=== PATIENT | male | born 1945 | race Caucasian/White ===

== ENCOUNTER 2017-07-20 12:56 | Inpatient (IN) | payer MEDICARE, OTHER ==
--- NOTE | 2017-07-20 13:21 | ED Physician Chart ---
ED Chief Complaint/HPI - Patient Information Date Seen:: 07/20/17 Time Seen:: 13:15 Chief Complaint:: aggressive behavior History of Present Illness:: At his extended care facility patient was reportedly spitting and striking staff. Allergies:: Allergies Allergy/AdvReac Type Severity Reaction Status Date / Time No Known Allergies Allergy Verified 07/20/17 13:13 Historian:: Patient, EMS Review:: Transfer documents Reviewed ED Review of Systems - Review of Systems General/Constitutional: No fever, No chills, No weight loss, No weakness, No diaphoresis, No edema, No loss of appetite Skin: No skin lesions, No rash, No bruising Head: No headache, No light-headedness Eyes: No loss of vision, No pain, No diplopia ENT: No earache, No nasal drainage, No sore throat, No tinnitus Neck: No neck pain, No swelling, No thyromegaly, No stiffness, No mass noted Cardio Vascular: No chest pain, No palpitations, No PND, No orthopnea, No edema Pulmonary: No SOB, No cough, No sputum, No wheezing GI: No nausea, No vomiting, No diarrhea, No pain, No melena, No hematochezia, No constipation, No hematemesis G/U: No dysuria, No frequency, No hematuria Musculoskeletal: No bone or joint pain, No back pain, No muscle pain Endocrine: No polyuria, No polydipsia Psychiatric: Prior psych history, Anxiety Hematopoietic: No bruising, No lymphadenopathy Allergic/Immuno: No urticaria, No angioedema Neurological: No syncope, No focal symptoms, No weakness, No paresthesia, No headache, No seizure, No dizziness, No confusion, No vertigo ED Past Medical History - Past Medical History Past Medical History: HTN, CAD, Dyslipidemia, Dementia, Other (status post subdural hematoma; status post urinary tract infection; Alzheimer's disease; hyperlipidemia depression; anxiety) Family History: Other (unavailable) Social History: Care Facility Surgical History: CABG Psychiatricy History: Depression, Dementia, Other (anxiety) Medication: Reviewed Family Medical History - Family Member Mother History Unknown: Yes ED Physical Exam - Physical Examination General/Constitutional: Well-developed, well-nourished, Alert, No distress Other Gen/Cons comments:: Is alert but confused; does not know the correct year; has a slow shuffling gait ; upper extremity tremors Head: Atraumatic Eyes: Lids, conjuctiva normal, PERRL Skin: Nl inspection, No rash, No skin lesions, No ecchymosis ENMT: External ears, nose nl, TM canals nl, Nasal exam nl Other ENMT comments:: 3/4 periodontal disease Neck: No nuchal rigidity Respiratory: Nl effort/Exclusion, Clear to Auscultation, No Wheeze/Rhonchi/Rales Cardio Vascular: RRR, No murmur, gallop, rubs, NL S1 S2 GI: No tenderness/rebounding/guarding, No organomegaly, No hernia, Normal BS's, Nondistended, No mass/bruits : No CVA tenderness Extremities: No tenderness or effusion, Normal digits & nails Neuro/Psych: No focal deficits Misc: No paraspinal tenderness ED Labs/Radiology/EKG Results - Lab Results Results: Laboratory Results - last 24 hr 07/20/17 07/20/17 13:25 13:25 WBC 7.1 RBC 4.32 Hgb 14.0 Hct 41.5 MCV 96.1 MCH 32.5 H MCHC Differential 33.8 RDW 14.0 Plt Count 231 MPV 7.4 Neutrophils % 52.5 Lymphocytes % 35.7 Monocytes % 9.4 Eosinophils % 1.6 Basophils % 0.8 Sodium 138 Potassium 3.7 Chloride 103 Carbon Dioxide 28.6 Anion Gap 10.1 BUN 24 Creatinine 1.2 Est GFR ( Amer) TNP Est GFR (Non-Af Amer) TNP BUN/Creatinine Ratio 20.0 Glucose 81 Calcium 9.8 Total Bilirubin 0.5 AST 17 ALT 10 Alkaline Phosphatase 37 Total Protein 7.4 Albumin 4.2 Globulin 3.2 Albumin/Globulin Ratio 1.3 Triglycerides 114 Cholesterol 139 LDL Cholesterol Direct 84 HDL Cholesterol 42 - EKG Interpretations Rate & Rhythm: normal sinus rhythm with rate of 63 Thornton: normal Comments:: Frequent unifocal PVCs ED Septic Shock - . Is Septic Shock (SBP<90, OR Lactate>4 mmol\L) present?: No ED Reassessment (Disposition) - Reassessment Reassessment Condition:: Unchanged - Diagnosis Diagnosis:: Dementia with aggressive behavior - Patient Disposition Admitted to:: [facility] Admitting Medical Physician:: David Cronin Admitting Psych Physician:: Wadie Alkhouri Condition at Disposition:: Stable, Unchanged
[2017-07-20 13:33] LABS: % BASOPHILS 0.8 % (0.0-2.0); % EOSINOPHILS 1.6 % (0.0-5.0); % LYMPHOCYTES 35.7 % (20.0-50.0); % MONOCYTES 9.4 % (2.0-10.0); % NEUTROPHILS 52.5 % (40.0-80.0); BASOPHILE ABSOLUTE 0.1 Th/cumm (0-0.2); EOSINOPHILE ABSOLUTE 0.1 Th/cmm (0.1-0.4); HEMATOCRIT 41.5 % (41.0-60); LYMPHOCYTE ABSOLUTE 2.5 Th/cmm (1.5-3.0); MEAN CELL VOLUME 96.1 fl (80-99); MEAN CORPUSCULAR HEMOGLOBIN 32.5 pg (27.0-31.0); MEAN CORPUSCULAR HGB CONC 33.8 pg (28.0-36.0); MEAN PLATELET VOLUME 7.4 fl; MONOCYTE ABSOLUTE 0.7 Th/cmm (0.3-1.0); NEUTROPHILE ABSOLUTE 3.7 Th/cmm (1.8-8.0); PLATELET COUNT 231 Th/cmm (150-400); RED BLOOD COUNT 4.32 Mil/cmm (3.80-5.80); WHITE BLOOD COUNT 7.1 Th/cmm (4.8-10.8)
[2017-07-20 13:49] LABS: ALB/GLOB RATIO 1.3 (1.0-1.8); ALBUMIN 4.2 gm/dL (4.2-5.5); ALKALINE PHOSPHATASE 37 U/L (34-104); ANION GAP 10.1 (7.0-16.0); BILIRUBIN,TOTAL 0.5 mg/dL (0.3-1.0); BUN - UREA NITROGEN 24 mg/dL (7-25); CALCIUM SERUM 9.8 mg/dL (8.6-10.3); CARBON DIOXIDE 28.6 mEq/L (21.0-31.0); CHLORIDE 103 mEq/L (98-107); CHOLESTEROL 139 mg/dL (<200); CREATININE - SERUM 1.2 mg/dL (0.7-1.3); GLUCOSE 81 mg/dL (70-105); HDL -HIGH DENSITY LIPOPROTEIN 42 mg/dL (23-92); POTASSIUM SERUM 3.7 mEq/L (3.5-5.1); SGOT 17 U/L (13-39); SGPT/ALT 10 U/L (7-52); SODIUM SERUM 138 mEq/L (136-145); TOTAL PROTEIN,SERUM 7.4 gm/dL (6.0-8.3); TRIGLYCERIDES 114 mg/dL (<150)
[2017-07-20 15:27] LABS: URINE BILIRUBIN NEGATIVE (NEGATIVE); URINE BLOOD NEGATIVE (NEGATIVE); URINE GLUCOSE (UA) NEGATIVE (NEGATIVE); URINE KETONE NEGATIVE (NEGATIVE); URINE LEUKOCYTE ESTERASE NEGATIVE (NEGATIVE); URINE MICROSCOPIC INDICATED? YES; URINE NITRATE NEGATIVE (NEGATIVE); URINE PROTEIN NEGATIVE (NEGATIVE); URINE SOURCE CLEAN C; URINE UROBILINOGEN 0.2 E.U./dL (0.2 - 1.0)
[2017-07-20 15:44] LABS: URINE CLARITY CLEAR (CLEAR); URINE COLOR YELLOW
[2017-07-20 15:45] LABS: URINE BACTERIA NONE SEEN /hpf (NONE SEEN); URINE EPITHELIAL CELLS NONE SEEN /lpf (FEW); URINE RBC NONE SEEN /hpf (0-5); URINE WBC NONE SEEN /hpf (0-5)
[2017-07-20 16:50] VITALS: BP 127/73
[2017-07-20] MEDS ORDERED: Magnesium Hydroxide (MOM) 30 mL UDC PO PRN ×2 (17:02→17:05)
[2017-07-20] MEDS ORDERED: Maalox 30 mL Cup PO PRN (17:02)
[2017-07-20 17:51] LABS: A1C % 5.9 % (4.0-6.0)
--- NOTE | 2017-07-20 21:07 | History & Physical ---
ADMIT DATE: 07/20/2017 ADMITTING PHYSICIAN: Dr. Sol. REASON FOR ADMISSION: Psychiatric disorder. HISTORY OF PRESENT ILLNESS: This is a 72-year-old male admitted to [facility] for underlying psychiatric illnesses by Dr. Sol. Dr. Sol requested medical H and P for this patient. The patient has underlying history of advanced dementia. Also, underlying history of hypertension, hyperlipidemia. The patient denies any complaints. PAST MEDICAL HISTORY: Hypertension, hyperlipidemia, dementia and mental disorders PAST SURGICAL HISTORY: No significant past surgeries. SOCIAL HISTORY: The patient is a resident of a custodial facility. No reported alcohol, tobacco or drug use. CURRENT MEDICATIONS: On Ambien, Zocor, Namenda, Ativan, Zestril, Mylanta, Tylenol and Dulcolax. REVIEW OF SYSTEMS: No reported fever, no diarrhea, no vomiting, no breathing issues. No chest pain, no palpitation, no headache, no other complaints. PHYSICAL EXAMINATION: VITAL SIGNS: Temperature 97.1, pulse 65, respiration 18, blood pressure 120/70, oxygen saturation is 94% on room air. Pain 0/10. HEENT: Unremarkable. HEART: S1, S2 normal. LUNGS: Clear to auscultation bilaterally. ABDOMEN: Soft, nontender. EXTREMITIES: No edema noted. LABORATORY DATA: Available laboratory data has been reviewed. ASSESSMENT: 1. Hypertension. 2. Hyperlipidemia. 3. Advanced dementia. 4. Mental disorder. PLAN: Continue Zestril. Continue simvastatin. Continue psychotropic medications. Psych evaluation per psychiatrist. The patient is medically stable. Thank you, Dr. Sol for allowing me to participate in the care of this patient. JOB# [id number]
[2017-07-21] MEDS: Multivitamin Tab PO SCH (09:24)
--- NOTE | 2017-07-22 03:39 | Psychosocial Evaluation ---
DATE OF SERVICE: 07/20/2017 PSYCHIATRIC PROGRESS NOTE IDENTIFYING DATA: The patient is a 72-year-old male, resident of [facility] in [place]. Information obtained by directly interviewing the patient as well as reviewing the admission papers and they are reliable. JUSTIFICATION FOR HOSPITALIZATION: The patient is admitted here on a voluntary basis on a 5150 for being a danger to others. CHIEF COMPLAINT: "I don't know." HISTORY OF PRESENT ILLNESS: This is the first psychiatric hospitalization to the [facility] for this 72-year-old who is reported to have been screaming and yelling and has been having difficult time to calm down. The patient could not be contained at a lower level of care and hence the patient has been transferred over to the [facility]. The patient has been monitored. The patient is being interviewed, but the patient is refusing to get the information. PAST PSYCHIATRIC HISTORY: Details are not known, but the patient is being followed up by Dr. Myers on an outpatient basis at [facility]. MEDICAL HISTORY: Significant for hypertension, hyperlipidemia. Physical examination is requested by Dr. Rincon. SUBSTANCE ABUSE HISTORY: None. PHYSICAL OR SEXUAL ABUSE HISTORY: None. LEGAL PROBLEMS: None at this time. STRENGTH AND ASSETS: The patient is motivated. MENTAL STATUS EXAMINATION: The patient is a 72-year-old, looking his stated age, superficially cooperative. Eye contact is fair. Mood is noted to be irritable. Affect is constricted. The patient has been having difficult time to cope with the stress. The patient's short and long-term memory are noted to be very much impaired at this time. The patient is withdrawing when I am interviewing the patient. The patient has been having difficult time to provide much of any information. The patient has been getting easily frustrated to answer the simple questions. The patient has paranoia, but denies any command hallucinations. The patient is screaming and yelling and getting aggressive. Coping skills at this time are noted to be very poor. The patient is reported to have been out of control and has been calm. DIAGNOSTIC IMPRESSION: AXIS I: Dementia and behavioral change secondary trait. 1B: Psychotic disorder, not otherwise specified. AXIS II: None. AXIS III: As per Dr. Rincon. IMMEDIATE TREATMENT PLAN: The patient is going to be observed on inpatient unit, provided with supportive psychotherapy. The patient is going to be closely monitored. Once stabilized, the patient is going to be discharged to self to be followed up on an outpatient basis. JOB# [id number]
[2017-07-22] MEDS: Multivitamin Tab PO SCH (09:43)
--- NOTE | 2017-07-22 16:09 | Progress Notes ---
DATE: 07/22/2017 SUBJECTIVE: Staff was spoken to. The patient is interviewed. Mood is noted to be less irritable. Affect is appropriate. The patient is sedated at this time. No side effects to the medications are noted. Coping skills at this time are noted to be poor. The patient has been currently on 100 mg on the trazodone that is also making him to be too groggy in the morning and hence it has been changed to 50 mg at bedtime and the patient is going to be closely monitored and followed up with the supportive therapy. The patient has been on Seroquel, trazodone and Ambien that is what is making him too sleepy and hence Ambien is going to be discontinued. PLAN: The patient is going to be continued on trazodone and Seroquel and followed up. JOB# [id number]
[2017-07-23] MEDS: Multivitamin Tab PO SCH (10:58)
--- NOTE | 2017-07-24 01:04 | Progress Notes ---
DATE: 07/23/2017 SUBJECTIVE: Staff was spoken to. The patient is interviewed. Mood is noted to be irritable. Affect is constricted. Coping skills are noted to be still poor. Insight and judgment are noted to be still impaired. No side effects to the medications are noted. The patient has been having difficult time to cope with the stress. ASSESSMENT: The patient is currently on Seroquel 12.5 mg, I am planning to increase the dose to 25 mg in view of his paranoia and aggressive behavior. PLAN: To continue the patient with supportive therapy. I encouraged the patient to verbalize the concerns rather than to act out. JOB# [id number]
[2017-07-24] MEDS: Multivitamin Tab PO SCH (09:42)
[2017-07-24] MEDS: Fenofibrate, Micronized 134 mg Cap PO SCH (20:27)
--- NOTE | 2017-07-25 09:16 | Consultation ---
DATE OF CONSULTATION: 07/22/2017 REFERRING PHYSICIAN: Maya Duong M.D. TYPE OF CONSULTATION: Psychology. HISTORY OF PRESENT ILLNESS: The patient is a 72-year-old male. The patient is a resident of [facility] in [facility]. The patient is being admitted on a 5150 hold for being a danger to others. The following is by review of the medical record and by the patient's self report. According to record review, the patient was reported by the staff at his facility to be screaming and yelling and unable to deescalate or calm down. The patient at the time of this interview is selectively mute and not giving much information. The patient continued to state that he did not know what this movie writer was asking. The patient also stated he does not know why he is in the hospital. The patient denied any suicidal ideation, plan or intention or any homicidal plan or intention. PAST MEDICAL HISTORY: Please see history and physical by Dr. Rincon. PAST PSYCHIATRIC HISTORY: The patient is seen by a psychiatrist and psychologist at his shelter facility. The patient has a history of dementia with behavioral disturbance. SUBSTANCE ABUSE HISTORY: None. PSYCHOSOCIAL HISTORY: The patient did not answer any questions presented about occupation or educational history or episcopalian affiliation. The patient did not answer questions about physical or sexual abuse history or about any legal issues at the time of this interview. MENTAL STATUS EXAMINATION: The patient appears to be his stated age. The patient's attitude is guarded and mostly uncooperative. Eye contact is fair. Mood is irritable and angry. Affect is constricted. The patient's thought process shows to be concrete. The patient is not answering questions; this needs further evaluation. The patient denied any auditory or visual hallucinations; however, there is some evidence of paranoid ideation. The patient's behavior is screaming and yelling on the unit as well as verbally aggressive. Impulse control is inadequate and impaired. Concentration is poor. The patient's sensorium is alert and oriented to self and place only. The patient did not participate in the memory assessment. The patient did not answer or participate in the interpretation of proverbs. Insight is impaired. Judgment is impaired. DIAGNOSTIC IMPRESSION: AXIS I: 1. Dementia with behavioral disturbance. 2. Psychotic disorder, not otherwise specified. AXIS II: Deferred. AXIS III: Per Dr. Rincon. TREATMENT PLAN: The patient has been seen by Dr. Duong for psychiatric evaluation and for the management of the patient's psychotropic medications. We will provide supportive psychotherapy to include de-escalation of the patient 's agitation as well as limit setting. We will provide motivational enhancement for the patient to become compliant and stay compliant with all aspects of his care and treatment plan. We will encourage the patient to verbalize his concerns versus acting out. We will provide coping strategies for phase of life issues. We will provide reality orientation, reality differentiation and reality integration as well. We will provide continued opportunities for the patient to verbally contract for safety and no self harm prior to discharge. Thank you, Dr. Duong, for this consult and the opportunity to participate with you in this patient's care. JOB# [id number] ALLYSON
[2017-07-25] MEDS: Multivitamin Tab PO SCH (09:55)
--- NOTE | 2017-07-25 15:35 | Progress Notes ---
DATE: 07/24/2017 Staff was spoken to. The patient is interviewed. Mood is noted to be less irritable. Affect is appropriate. The patient has finally been able to verbalize the concerns, he is willing to comply with the treatment. Also, the effects of the medications are noted. The patient is having a difficult time towards the evening and the patient is going to be closely monitored. I encouraged to verbalize the concerns rather than to act out. JOB# [id number]
--- NOTE | 2017-07-25 20:06 | General Progress Note ---
Subjective - Review of Systems Service Date: 07/25/17 Subjective: patient seen and examined doing fine seems confused denied any complaints Objective - Results Result Diagrams: 07/20/17 13:25 07/20/17 13:25 Recent Labs: Laboratory Last Values WBC 7.1 Th/cmm (4.8-10.8) 07/20/17 13:25 RBC 4.32 Mil/cmm (3.80-5.80) 07/20/17 13:25 Hgb 14.0 gm/dL (12-16) 07/20/17 13:25 Hct 41.5 % (41.0-60) 07/20/17 13:25 MCV 96.1 fl (80-99) 07/20/17 13:25 MCH 32.5 pg (27.0-31.0) H 07/20/17 13:25 MCHC Differential 33.8 pg (28.0-36.0) 07/20/17 13:25 RDW 14.0 % (11.5-20.0) 07/20/17 13:25 Plt Count 231 Th/cmm (150-400) 07/20/17 13:25 MPV 7.4 fl 07/20/17 13:25 Neutrophils % 52.5 % (40.0-80.0) 07/20/17 13:25 Lymphocytes % 35.7 % (20.0-50.0) 07/20/17 13:25 Monocytes % 9.4 % (2.0-10.0) 07/20/17 13:25 Eosinophils % 1.6 % (0.0-5.0) 07/20/17 13:25 Basophils % 0.8 % (0.0-2.0) 07/20/17 13:25 Sodium 138 mEq/L (136-145) 07/20/17 13:25 Potassium 3.7 mEq/L (3.5-5.1) 07/20/17 13:25 Chloride 103 mEq/L (98-107) 07/20/17 13:25 Carbon Dioxide 28.6 mEq/L (21.0-31.0) 07/20/17 13:25 Anion Gap 10.1 (7.0-16.0) 07/20/17 13:25 BUN 24 mg/dL (7-25) 07/20/17 13:25 Creatinine 1.2 mg/dL (0.7-1.3) 07/20/17 13:25 Est GFR ( Amer) TNP 07/20/17 13:25 Est GFR (Non-Af Amer) TNP 07/20/17 13:25 BUN/Creatinine Ratio 20.0 07/20/17 13:25 Glucose 81 mg/dL (70-105) 07/20/17 13:25 Hemoglobin A1c % 5.9 % (4.0-6.0) 07/20/17 13:25 Calcium 9.8 mg/dL (8.6-10.3) 07/20/17 13:25 Total Bilirubin 0.5 mg/dL (0.3-1.0) 07/20/17 13:25 AST 17 U/L (13-39) 07/20/17 13:25 ALT 10 U/L (7-52) 07/20/17 13:25 Alkaline Phosphatase 37 U/L (34-104) 07/20/17 13:25 Total Protein 7.4 gm/dL (6.0-8.3) 07/20/17 13:25 Albumin 4.2 gm/dL (4.2-5.5) 07/20/17 13:25 Globulin 3.2 gm/dL 07/20/17 13:25 Albumin/Globulin Ratio 1.3 (1.0-1.8) 07/20/17 13:25 Triglycerides 114 mg/dL (<150) 07/20/17 13:25 Cholesterol 139 mg/dL (<200) 07/20/17 13:25 LDL Cholesterol Direct 84 mg/dL (75-193) 07/20/17 13:25 HDL Cholesterol 42 mg/dL (23-92) 07/20/17 13:25 TSH 1.47 uIU/ml (0.34-5.60) 07/20/17 13:25 Urine Source CLEAN C 07/20/17 15:09 Urine Color YELLOW 07/20/17 15:09 Urine Clarity CLEAR (CLEAR) 07/20/17 15:09 Urine pH 6.0 (4.6 - 8.0) 07/20/17 15:09 Ur Specific Howell 1.025 (1.005-1.030) 07/20/17 15:09 Urine Protein NEGATIVE mg/dL (NEGATIVE) 07/20/17 15:09 Urine Glucose (UA) NEGATIVE mg/dL (NEGATIVE) 07/20/17 15:09 Urine Ketones NEGATIVE mg/dL (NEGATIVE) 07/20/17 15:09 Urine Blood NEGATIVE (NEGATIVE) 07/20/17 15:09 Urine Nitrate NEGATIVE (NEGATIVE) 07/20/17 15:09 Urine Bilirubin NEGATIVE (NEGATIVE) 07/20/17 15:09 Urine Urobilinogen 0.2 E.U./dL (0.2 - 1.0) 07/20/17 15:09 Ur Leukocyte Esterase NEGATIVE (NEGATIVE) 07/20/17 15:09 Urine RBC NONE SEEN /hpf (0-5) 07/20/17 15:09 Urine WBC NONE SEEN /hpf (0-5) 07/20/17 15:09 Ur Epithelial Cells NONE SEEN /lpf (FEW) 07/20/17 15:09 Urine Bacteria NONE SEEN /hpf (NONE SEEN) 07/20/17 15:09 RPR NONREACTIVE (NONREACTIVE) 07/20/17 13:25 - Physical Exam Vitals and I&O: Vital Signs Temp 97.6 F 07/25/17 14:00 Pulse 82 07/25/17 14:00 Resp 20 07/25/17 14:00 BP 113/45 07/25/17 14:00 Pulse Ox 97 07/25/17 14:00 Intake & Output 07/25/17 07/25/17 07/26/17 06:59 18:59 06:59 Intake Total 120 800 Balance 120 800 Intake: Oral 120 800 Other: # Voids 2 3 # Bowel Movements 1 0 Active Medications: Current Medications Acetaminophen (Tylenol) 650 mg PO Q4HR PRN PRN Reason: Mild Pain / Temp above 100 Stop: 09/18/17 17:01 Al Hydrox/Mg Hydrox/Simethicone (Maalox) 30 ml PO Q4HR PRN PRN Reason: GI DISTRESS Stop: 09/18/17 17:01 Bisacodyl (Dulcolax 10 Mg Supp) 10 mg RC DAILY PRN PRN Reason: Constipation Stop: 09/18/17 17:04 Donepezil HCl (Aricept) 10 mg PO HS JANIA Stop: 09/18/17 20:59 Last Admin: 07/24/17 20:29 Dose: Not Given Fenofibrate (Tricor) 134 mg PO HS [facility] Stop: 09/22/17 20:59 Last Admin: 07/24/17 20:27 Dose: 134 mg Lisinopril (Zestril) 20 mg PO DAILY [facility] Stop: 09/19/17 08:59 Last Admin: 07/25/17 09:56 Dose: 20 mg Lorazepam (Ativan) 0.5 mg PO Q4HR PRN; Protocol PRN Reason: Anxiety Stop: 08/19/17 17:01 Magnesium Hydroxide (Milk Of Magnesia) 30 ml PO HS PRN PRN Reason: Constipation Memantine (Namenda) 10 mg PO DAILY [facility] Stop: 09/19/17 08:59 Last Admin: 07/25/17 09:56 Dose: 10 mg Multivitamins/Vitamin C (Theragran) 1 tab PO DAILY [facility] Stop: 09/19/17 08:59 Last Admin: 07/25/17 09:55 Dose: 1 tab Mupirocin (Bactroban Oint) 1 appl NS BID [facility] Stop: 07/26/17 17:01 Last Admin: 07/25/17 16:34 Dose: 1 appl Quetiapine Fumarate (Seroquel) 25 mg PO HS JANIA PRN Reason: Protocol Stop: 09/21/17 09:33 Last Admin: 07/24/17 20:29 Dose: Not Given Simvastatin (Zocor) 80 mg PO [facility] Stop: 09/18/17 20:59 Last Admin: 07/24/17 20:27 Dose: 80 mg Trazodone HCl (Desyrel) 50 mg PO [facility] Stop: 09/20/17 10:50 Last Admin: 07/24/17 20:30 Dose: Not Given General: No acute distress Cardiovascular: Regular rate Lungs: Clear to auscultation Assessment/Plan - Assessment Assessment: HTN HYPERLIPIDEMIA Alzheimers dementia Mental health disorder - Plan Plan: Patient seems medically stable Continue current treatment Monitor vitals Nutritional Asmnt/Malnutr-PDOC - Dietary Evaluation Malnutrition Findings (Please click <Entered> for more info): Nutritional Asmnt/Malnutrition Start: 07/25/17 16: 44 Text: Status: Complete Freq: Document 07/25/17 16:44 ERIC (Rec: 07/25/17 16:47 [email or web address]) Nutritional Asmnt/Malnutrition Patient General Information Nutritional Screening Moderate Risk Diagnosis dementia with aggressive behavior Pertinent Medical Hx/Surgical Hx HTN, hyperlidemia, dementia, mental disorders Subjective Information Per EMR, PO intake 75-100%. Current Diet Order/ Nutrition Support IVAN Pertinent Medications theragran, seroquel Pertinent Labs 07/20 WNL Nutritional Hx/Data Height 1.7 m Height (Calculated Centimeters) 170.2 Current Weight (lbs) 68.039 kg Weight (Calculated Kilograms) 68.0 Weight (Calculated Grams) 84600.9 [place] Body Weight 148 Body Mass Index (BMI) 23.5 Weight Status Approriate GI Symptoms GI Symptoms None Last BM 07/25 Difficult in: None Skin Integrity/Comment: intact Current %PO Good (75-100%) Estimated Nutritional Goals BEE in Kcals: Using Current wt Calories/Kcals/Kg 25-30 Kcals Calculated 8325-9139 Protein: Using Current wt Protein g/k Protein Calculated 68 Fluid: ml 1700-2040ml (1ml/kcal) Nutritional Problem No current Nutrition Prob Problem N/A Intervention/Recommendation Comments 1. Continue with IVAN diet as ordered. 2. Monitor PO intake, wt, labs and skin integrity 3. F/U as low risk in 7 days, 08/01 Expected Outcomes/Goals Expected Outcomes/Goals 1. PO intake to meet at least 75% of nutritional needs. 2. Wt stability, skin to remain intact, labs to approach WNL.
[2017-07-25] MEDS: Fenofibrate, Micronized 134 mg Cap PO SCH ×2 (20:22→20:43)
--- NOTE | 2017-07-26 03:38 | Progress Notes ---
DATE: 07/25/2017 SUBJECTIVE: Staff was spoken to. The patient is interviewed. Mood is noted to be less irritable. The patient is much more awake and alert today. The patient's psychotropic medications have been kept on hold because the patient is too groggy. Coping skills at this time are noted to be improving. No major side effects are noted. The patient's aggressive behavior is a major concern and is being closely monitored. ASSESSMENT: The patient is less sedated. PLAN: To continue the patient with the current medications. I encouraged the patient to verbalize the concerns rather than to act out. JOB# [id number]
[2017-07-26] MEDS: Multivitamin Tab PO SCH (09:36)
[2017-07-26] MEDS: Fenofibrate, Micronized 134 mg Cap PO SCH (20:30)
--- NOTE | 2017-07-27 05:16 | Progress Notes ---
DATE: 07/26/2017 SUBJECTIVE: Staff was spoken to. The patient is interviewed. Mood is noted to be less irritable. The patient's lethargy has been under control after the medications has been held. The patient's coping skills are noted to be still poor. The patient tends to get easily irritable and confused towards the end of the day. No side effects to the medications are noted. The patient is being closely monitored with the p.r.n. dose of medications at this time. ASSESSMENT: The patient is still confused, agitated. PLAN: To continue the patient with the supportive therapy. Encouraged the patient to verbalize the concerns rather than to act out. JOB# [id number]
[2017-07-27] MEDS: Multivitamin Tab PO SCH (09:28)
[2017-07-27] MEDS: Fenofibrate, Micronized 134 mg Cap PO SCH (21:38)
--- NOTE | 2017-07-28 02:49 | Progress Notes ---
DATE: 07/27/2017 SUBJECTIVE: Staff was spoken to. The patient is interviewed. Mood is noted to be irritable. Affect is constricted. The patient is paranoid. The patient's insight and judgment at this time are noted to be impaired. The patient's coping skills are noted to be poor. The patient has been less irritable and patient's sleep is noted to be fair at this time. No side effects to the medications are noted and patient has been reported to have been drowsy during the daytime and hence it is decided to hold off on the trazodone and continue the Seroquel and then follow the patient up. JOB# [id number]
[2017-07-28] MEDS: Multivitamin Tab PO SCH (09:08)
[2017-07-28] MEDS: Fenofibrate, Micronized 134 mg Cap PO SCH (20:25)
--- NOTE | 2017-07-29 00:42 | Progress Notes ---
DATE: 07/28/2017 PSYCHIATRIC PROGRESS NOTE Staff was spoken to. The patient is interviewed. Mood is noted to be less irritable. Affect is appropriate. The patient has been paranoid, but denies any command hallucinations. Aggressive behavior has been coming under control, but the patient is still having problem with the short-term as well as long-term memories. ASSESSMENT: The patient is still impulsive. PLAN: To continue the patient with the current medications. I encouraged the patient to verbalize the concerns rather than to act out. JOB# [id number]
[2017-07-29] MEDS: Multivitamin Tab PO SCH (09:22)
--- NOTE | 2017-07-29 18:53 | Progress Notes ---
DATE: 07/29/2017 SUBJECTIVE: Staff was spoken to. The patient is interviewed. Mood is noted to be anxious. The patient is isolative and withdrawn. The patient is going on a tangent and not making much sense. Insight and judgment is still impaired. The patient is currently on 25 mg of the Seroquel. The patient is being closely monitored. The patient is still confused and demented. ASSESSMENT: The patient is still impulsive. PLAN: To continue the patient with the supportive therapy and followup. [facility]# [id number]
[2017-07-29] MEDS: Fenofibrate, Micronized 134 mg Cap PO SCH (21:22)
[2017-07-30] MEDS: Multivitamin Tab PO SCH (08:25)
[2017-07-30] MEDS: Fenofibrate, Micronized 134 mg Cap PO SCH (20:59)
--- NOTE | 2017-07-30 22:03 | Progress Notes ---
DATE: 07/30/2017 PSYCHIATRIC PROGRESS NOTE SUBJECTIVE: Staff was spoken to. The patient is interviewed. Mood is noted to be dysphoric. Coping skills are noted to be poor. Insight and judgment at this time are noted to be improving. Impulse control seems to be poor. No side effects to the medications are noted. The patient has been less irritable compared to yesterday, but the patient has a problem with his short-term as well as long-term memory deficits. The patient goes on a tangent. ASSESSMENT: The patient is still psychotic. PLAN: To continue the patient with the current medications and follow up with the supportive therapy. [facility]# [id number]
[2017-07-31] MEDS: Multivitamin Tab PO SCH (08:25)
[2017-07-31] MEDS: Fenofibrate, Micronized 134 mg Cap PO SCH (20:42)
--- NOTE | 2017-08-01 05:36 | Progress Notes ---
DATE: 07/31/2017 SUBJECTIVE: Staff was spoken to. The patient is interviewed. Mood is noted to be less irritable. Affect is appropriate. No major side effects to the medications are noted. The patient has been able to verbalize his concerns. The patient is on low dose of Seroquel and has been able to tolerate the medication. ASSESSMENT: The patient's psychosis is resolving. PLAN: To continue the patient with the supportive therapy and followup. JOB# [id number]
[2017-08-01] MEDS: Multivitamin Tab PO SCH (10:33)
--- NOTE | 2017-08-01 19:18 | Discharge Summary ---
DATE OF DISCHARGE: 08/01/2017 IDENTIFYING DATA: The patient is a 72-year-old male, resident of a [facility]. JUSTIFICATION FOR HOSPITALIZATION: The patient is admitted on a 5150, as a danger to others. CHIEF COMPLAINT: "I do not know." DIAGNOSES AT THE TIME OF ADMISSION: AXIS I: Dementia and behavioral change, secondary trait. AXIS IB: Psychotic disorder, not otherwise specified. AXIS II: None. AXIS III: As per Dr. Rincon. HISTORY OF PRESENT ILLNESS: Please refer the 07/22/2017, dictation done by me. Physical examination at the time of admission was done by Dr. Quique Rincon, and is noted to be significant for the patient having hypertension, hyperlipidemia, and advanced hospital course, and response to treatment. The patient has been observed on inpatient unit, provided with supportive psychotherapy. The patient has been closely monitored. I encouraged him to verbalize the concerns rather than to act out and the patient has been placed on quetiapine, which was given 25 mg at bedtime and the patient has been closely monitored and no major behavioral problems are noted. The patient was finally discharged on 08/01/2017, with recommendation that he is going to be seeking treatment on an outpatient basis. MENTAL STATUS EXAMINATION: At the time of the discharge, the patient noted to be anxious. Affect is appropriate. Not suicidal or homicidal. Insight and judgment are noted to be improving. Impulse control is noted to be fair. Coping skills are also noted fair. The patient is not presenting with any threats to harm self or others at the time of the discharge. Condition at the time of discharge noted to be stable. DIAGNOSES AT THE TIME OF DISCHARGE: AXIS I: Dementia and behavioral change, secondary trait. AXIS IB: Psychotic disorder, not otherwise specified. AXIS II: None. AXIS III: As per Dr. Rincon. AFTERCARE PLAN: The patient is discharged to [facility] to be followed up on an outpatient basis. PROGNOSIS: At the time of discharge is noted to be fair with the treatment. [facility]# [id number]
[2017-08-01] MEDS: Fenofibrate, Micronized 134 mg Cap PO SCH (20:26)
--- NOTE | 2017-08-01 21:17 | General Progress Note ---
Subjective - Review of Systems Service Date: 08/01/17 Subjective: patient seen and examined doing fine seems confused Objective - Results Result Diagrams: 07/20/17 13:25 07/20/17 13:25 Recent Labs: Laboratory Last Values WBC 7.1 Th/cmm (4.8-10.8) 07/20/17 13:25 RBC 4.32 Mil/cmm (3.80-5.80) 07/20/17 13:25 Hgb 14.0 gm/dL (12-16) 07/20/17 13:25 Hct 41.5 % (41.0-60) 07/20/17 13:25 MCV 96.1 fl (80-99) 07/20/17 13:25 MCH 32.5 pg (27.0-31.0) H 07/20/17 13:25 MCHC Differential 33.8 pg (28.0-36.0) 07/20/17 13:25 RDW 14.0 % (11.5-20.0) 07/20/17 13:25 Plt Count 231 Th/cmm (150-400) 07/20/17 13:25 MPV 7.4 fl 07/20/17 13:25 Neutrophils % 52.5 % (40.0-80.0) 07/20/17 13:25 Lymphocytes % 35.7 % (20.0-50.0) 07/20/17 13:25 Monocytes % 9.4 % (2.0-10.0) 07/20/17 13:25 Eosinophils % 1.6 % (0.0-5.0) 07/20/17 13:25 Basophils % 0.8 % (0.0-2.0) 07/20/17 13:25 Sodium 138 mEq/L (136-145) 07/20/17 13:25 Potassium 3.7 mEq/L (3.5-5.1) 07/20/17 13:25 Chloride 103 mEq/L (98-107) 07/20/17 13:25 Carbon Dioxide 28.6 mEq/L (21.0-31.0) 07/20/17 13:25 Anion Gap 10.1 (7.0-16.0) 07/20/17 13:25 BUN 24 mg/dL (7-25) 07/20/17 13:25 Creatinine 1.2 mg/dL (0.7-1.3) 07/20/17 13:25 Est GFR ( Amer) TNP 07/20/17 13:25 Est GFR (Non-Af Amer) TNP 07/20/17 13:25 BUN/Creatinine Ratio 20.0 07/20/17 13:25 Glucose 81 mg/dL (70-105) 07/20/17 13:25 Hemoglobin A1c % 5.9 % (4.0-6.0) 07/20/17 13:25 Calcium 9.8 mg/dL (8.6-10.3) 07/20/17 13:25 Total Bilirubin 0.5 mg/dL (0.3-1.0) 07/20/17 13:25 AST 17 U/L (13-39) 07/20/17 13:25 ALT 10 U/L (7-52) 07/20/17 13:25 Alkaline Phosphatase 37 U/L (34-104) 07/20/17 13:25 Total Protein 7.4 gm/dL (6.0-8.3) 07/20/17 13:25 Albumin 4.2 gm/dL (4.2-5.5) 07/20/17 13:25 Globulin 3.2 gm/dL 07/20/17 13:25 Albumin/Globulin Ratio 1.3 (1.0-1.8) 07/20/17 13:25 Triglycerides 114 mg/dL (<150) 07/20/17 13:25 Cholesterol 139 mg/dL (<200) 07/20/17 13:25 LDL Cholesterol Direct 84 mg/dL (75-193) 07/20/17 13:25 HDL Cholesterol 42 mg/dL (23-92) 07/20/17 13:25 TSH 1.47 uIU/ml (0.34-5.60) 07/20/17 13:25 Urine Source CLEAN C 07/20/17 15:09 Urine Color YELLOW 07/20/17 15:09 Urine Clarity CLEAR (CLEAR) 07/20/17 15:09 Urine pH 6.0 (4.6 - 8.0) 07/20/17 15:09 Ur Specific [place] 1.025 (1.005-1.030) 07/20/17 15:09 Urine Protein NEGATIVE mg/dL (NEGATIVE) 07/20/17 15:09 Urine Glucose (UA) NEGATIVE mg/dL (NEGATIVE) 07/20/17 15:09 Urine Ketones NEGATIVE mg/dL (NEGATIVE) 07/20/17 15:09 Urine Blood NEGATIVE (NEGATIVE) 07/20/17 15:09 Urine Nitrate NEGATIVE (NEGATIVE) 07/20/17 15:09 Urine Bilirubin NEGATIVE (NEGATIVE) 07/20/17 15:09 Urine Urobilinogen 0.2 E.U./dL (0.2 - 1.0) 07/20/17 15:09 Ur Leukocyte Esterase NEGATIVE (NEGATIVE) 07/20/17 15:09 Urine RBC NONE SEEN /hpf (0-5) 07/20/17 15:09 Urine WBC NONE SEEN /hpf (0-5) 07/20/17 15:09 Ur Epithelial Cells NONE SEEN /lpf (FEW) 07/20/17 15:09 Urine Bacteria NONE SEEN /hpf (NONE SEEN) 07/20/17 15:09 RPR NONREACTIVE (NONREACTIVE) 07/20/17 13:25 - Physical Exam Vitals and I&O: Vital Signs Temp 97.6 F 08/01/17 15:29 Pulse 70 08/01/17 15:29 Resp 20 08/01/17 15:29 BP 131/70 08/01/17 15:29 Pulse Ox 97 08/01/17 15:29 Intake & Output 08/01/17 08/01/17 08/02/17 06:59 18:59 06:59 Intake Total 480 1200 Balance 480 1200 Intake: Oral 480 1200 Other: # Voids 2 3 # Bowel Movements 1 Active Medications: Current Medications Acetaminophen (Tylenol) 650 mg PO Q4HR PRN PRN Reason: Mild Pain / Temp above 100 Stop: 09/18/17 17:01 Al Hydrox/Mg Hydrox/Simethicone (Maalox) 30 ml PO Q4HR PRN PRN Reason: GI DISTRESS Stop: 09/18/17 17:01 Bisacodyl (Dulcolax 10 Mg Supp) 10 mg RC DAILY PRN PRN Reason: Constipation Stop: 09/18/17 17:04 Donepezil HCl (Aricept) 10 mg PO HS JANIA Stop: 09/18/17 20:59 Last Admin: 08/01/17 20:27 Dose: 10 mg Fenofibrate (Tricor) 134 mg PO HS JANIA Stop: 09/22/17 20:59 Last Admin: 08/01/17 20:26 Dose: 134 mg Lisinopril (Zestril) 20 mg PO DAILY [facility] Stop: 09/19/17 08:59 Last Admin: 08/01/17 10:33 Dose: Not Given Lorazepam (Ativan) 0.5 mg PO Q4HR PRN; Protocol PRN Reason: Anxiety Stop: 08/19/17 17:01 Last Admin: 07/30/17 21:00 Dose: 0.5 mg Magnesium Hydroxide (Milk Of Magnesia) 30 ml PO HS PRN PRN Reason: Constipation Memantine (Namenda) 10 mg PO DAILY [facility] Stop: 09/19/17 08:59 Last Admin: 08/01/17 10:33 Dose: Not Given Multivitamins/Vitamin C (Theragran) 1 tab PO DAILY [facility] Stop: 09/19/17 08:59 Last Admin: 08/01/17 10:33 Dose: Not Given Quetiapine Fumarate (Seroquel) 25 mg PO HS JANIA PRN Reason: Protocol Stop: 09/21/17 09:33 Last Admin: 08/01/17 20:27 Dose: 25 mg Simvastatin (Zocor) 80 mg PO HS [facility] Stop: 09/18/17 20:59 Last Admin: 08/01/17 20:27 Dose: 80 mg General: No acute distress Cardiovascular: Regular rate Lungs: Clear to auscultation Assessment/Plan - Assessment Assessment: HTN HYPERLIPIDEMIA Alzheimers dementia Mental health disorder - Plan Plan: Patient seems medically stable Continue current treatment Monitor vitals Nutritional Asmnt/Malnutr-PDOC - Dietary Evaluation Malnutrition Findings (Please click <Entered> for more info): Nutritional Asmnt/Malnutrition Start: 07/25/17 16: 44 Text: Status: Complete Freq: Document 07/25/17 16:44 ERIC (Rec: 07/25/17 16:47 LCH[facility]Jacinta [facility]) Nutritional Asmnt/Malnutrition Patient General Information Nutritional Screening Moderate Risk Diagnosis dementia with aggressive behavior Pertinent Medical Hx/Surgical Hx HTN, hyperlidemia, dementia, mental disorders Subjective Information Per EMR, PO intake 75-100%. Current Diet Order/ Nutrition Support IVAN Pertinent Medications theragran, seroquel Pertinent Labs 07/20 WNL Nutritional Hx/Data Height 1.7 m Height (Calculated Centimeters) 170.2 Current Weight (lbs) 68.039 kg Weight (Calculated Kilograms) 68.0 Weight (Calculated Grams) 03606.9 [place] Body Weight 148 Body Mass Index (BMI) 23.5 Weight Status Approriate GI Symptoms GI Symptoms None Last BM 07/25 Difficult in: None Skin Integrity/Comment: intact Current %PO Good (75-100%) Estimated Nutritional Goals BEE in Kcals: Using Current wt Calories/Kcals/Kg 25-30 Kcals Calculated 2063-7117 Protein: Using Current wt Protein g/k Protein Calculated 68 Fluid: ml 1700-2040ml (1ml/kcal) Nutritional Problem No current Nutrition Prob Problem N/A Intervention/Recommendation Comments 1. Continue with IVAN diet as ordered. 2. Monitor PO intake, wt, labs and skin integrity 3. F/U as low risk in 7 days, 08/01 Expected Outcomes/Goals Expected Outcomes/Goals 1. PO intake to meet at least 75% of nutritional needs. 2. Wt stability, skin to remain intact, labs to approach WNL.
[2017-08-02] MEDS: Multivitamin Tab PO SCH (10:23)
--- NOTE | 2017-08-02 18:27 | General Progress Note ---
Subjective - Review of Systems Service Date: 08/02/17 Subjective: Late entry: patient was seen and examined earlier today DC plan to SNIF today Objective - Results Result Diagrams: 07/20/17 13:25 07/20/17 13:25 Recent Labs: Laboratory Last Values WBC 7.1 Th/cmm (4.8-10.8) 07/20/17 13:25 RBC 4.32 Mil/cmm (3.80-5.80) 07/20/17 13:25 Hgb 14.0 gm/dL (12-16) 07/20/17 13:25 Hct 41.5 % (41.0-60) 07/20/17 13:25 MCV 96.1 fl (80-99) 07/20/17 13:25 MCH 32.5 pg (27.0-31.0) H 07/20/17 13:25 MCHC Differential 33.8 pg (28.0-36.0) 07/20/17 13:25 RDW 14.0 % (11.5-20.0) 07/20/17 13:25 Plt Count 231 Th/cmm (150-400) 07/20/17 13:25 MPV 7.4 fl 07/20/17 13:25 Neutrophils % 52.5 % (40.0-80.0) 07/20/17 13:25 Lymphocytes % 35.7 % (20.0-50.0) 07/20/17 13:25 Monocytes % 9.4 % (2.0-10.0) 07/20/17 13:25 Eosinophils % 1.6 % (0.0-5.0) 07/20/17 13:25 Basophils % 0.8 % (0.0-2.0) 07/20/17 13:25 Sodium 138 mEq/L (136-145) 07/20/17 13:25 Potassium 3.7 mEq/L (3.5-5.1) 07/20/17 13:25 Chloride 103 mEq/L (98-107) 07/20/17 13:25 Carbon Dioxide 28.6 mEq/L (21.0-31.0) 07/20/17 13:25 Anion Gap 10.1 (7.0-16.0) 07/20/17 13:25 BUN 24 mg/dL (7-25) 07/20/17 13:25 Creatinine 1.2 mg/dL (0.7-1.3) 07/20/17 13:25 Est GFR ( Amer) TNP 07/20/17 13:25 Est GFR (Non-Af Amer) TNP 07/20/17 13:25 BUN/Creatinine Ratio 20.0 07/20/17 13:25 Glucose 81 mg/dL (70-105) 07/20/17 13:25 Hemoglobin A1c % 5.9 % (4.0-6.0) 07/20/17 13:25 Calcium 9.8 mg/dL (8.6-10.3) 07/20/17 13:25 Total Bilirubin 0.5 mg/dL (0.3-1.0) 07/20/17 13:25 AST 17 U/L (13-39) 07/20/17 13:25 ALT 10 U/L (7-52) 07/20/17 13:25 Alkaline Phosphatase 37 U/L (34-104) 07/20/17 13:25 Total Protein 7.4 gm/dL (6.0-8.3) 07/20/17 13:25 Albumin 4.2 gm/dL (4.2-5.5) 07/20/17 13:25 Globulin 3.2 gm/dL 07/20/17 13:25 Albumin/Globulin Ratio 1.3 (1.0-1.8) 07/20/17 13:25 Triglycerides 114 mg/dL (<150) 07/20/17 13:25 Cholesterol 139 mg/dL (<200) 07/20/17 13:25 LDL Cholesterol Direct 84 mg/dL (75-193) 07/20/17 13:25 HDL Cholesterol 42 mg/dL (23-92) 07/20/17 13:25 TSH 1.47 uIU/ml (0.34-5.60) 07/20/17 13:25 Urine Source CLEAN C 07/20/17 15:09 Urine Color YELLOW 07/20/17 15:09 Urine Clarity CLEAR (CLEAR) 07/20/17 15:09 Urine pH 6.0 (4.6 - 8.0) 07/20/17 15:09 Ur Specific [place] 1.025 (1.005-1.030) 07/20/17 15:09 Urine Protein NEGATIVE mg/dL (NEGATIVE) 07/20/17 15:09 Urine Glucose (UA) NEGATIVE mg/dL (NEGATIVE) 07/20/17 15:09 Urine Ketones NEGATIVE mg/dL (NEGATIVE) 07/20/17 15:09 Urine Blood NEGATIVE (NEGATIVE) 07/20/17 15:09 Urine Nitrate NEGATIVE (NEGATIVE) 07/20/17 15:09 Urine Bilirubin NEGATIVE (NEGATIVE) 07/20/17 15:09 Urine Urobilinogen 0.2 E.U./dL (0.2 - 1.0) 07/20/17 15:09 Ur Leukocyte Esterase NEGATIVE (NEGATIVE) 07/20/17 15:09 Urine RBC NONE SEEN /hpf (0-5) 07/20/17 15:09 Urine WBC NONE SEEN /hpf (0-5) 07/20/17 15:09 Ur Epithelial Cells NONE SEEN /lpf (FEW) 07/20/17 15:09 Urine Bacteria NONE SEEN /hpf (NONE SEEN) 07/20/17 15:09 RPR NONREACTIVE (NONREACTIVE) 07/20/17 13:25 - Physical Exam Vitals and I&O: Vital Signs Temp 96.9 F 08/02/17 15:03 Pulse 60 08/02/17 15:03 Resp 20 08/02/17 15:03 BP 132/71 08/02/17 15:03 Pulse Ox 95 08/02/17 15:03 Intake & Output 08/01/17 08/02/17 08/02/17 18:59 06:59 18:59 Intake Total 1200 120 Balance 1200 120 Intake: Oral 1200 120 Other: # Voids 3 3 # Bowel Movements 1 Stool Characteristics Formed Brown General: No acute distress Cardiovascular: Regular rate Lungs: Clear to auscultation Assessment/Plan - Assessment Assessment: HTN HYPERLIPIDEMIA Alzheimers dementia Mental health disorder - Plan Plan: Patient seems medically stable DC plan for SNIF today Continue current treatment Monitor vitals Nutritional Asmnt/Malnutr-PDOC - Dietary Evaluation Malnutrition Findings (Please click <Entered> for more info): Nutritional Asmnt/Malnutrition Start: 07/25/17 16: 44 Text: Status: Complete Freq: Document 07/25/17 16:44 LCHENG (Rec: 07/25/17 16:47 LCHENG LETICIA-[email or web address]) Nutritional Asmnt/Malnutrition Patient General Information Nutritional Screening Moderate Risk Diagnosis dementia with aggressive behavior Pertinent Medical Hx/Surgical Hx HTN, hyperlidemia, dementia, mental disorders Subjective Information Per EMR, PO intake 75-100%. Current Diet Order/ Nutrition Support IVAN Pertinent Medications theragran, seroquel Pertinent Labs 07/20 WNL Nutritional Hx/Data Height 1.7 m Height (Calculated Centimeters) 170.2 Current Weight (lbs) 68.039 kg Weight (Calculated Kilograms) 68.0 Weight (Calculated Grams) 03244.9 [place] Body Weight 148 Body Mass Index (BMI) 23.5 Weight Status Approriate GI Symptoms GI Symptoms None Last BM 07/25 Difficult in: None Skin Integrity/Comment: intact Current %PO Good (75-100%) Estimated Nutritional Goals BEE in Kcals: Using Current wt Calories/Kcals/Kg 25-30 Kcals Calculated 5442-6919 Protein: Using Current wt Protein g/k Protein Calculated 68 Fluid: ml 1700-2040ml (1ml/kcal) Nutritional Problem No current Nutrition Prob Problem N/A Intervention/Recommendation Comments 1. Continue with IVAN diet as ordered. 2. Monitor PO intake, wt, labs and skin integrity 3. F/U as low risk in 7 days, 08/01 Expected Outcomes/Goals Expected Outcomes/Goals 1. PO intake to meet at least 75% of nutritional needs. 2. Wt stability, skin to remain intact, labs to approach WNL.
== END 2017-08-02 16:45 | DRG 57 ==
LOC: ER 12:56 → GERO2 15:15 → GERO 07-21 19:43
DX: G30.9 Alzheimer's disease, unspecified (principal); F02.81 Dementia in other diseases classified elsewhere, unspecified severity, with behavioral disturbance; F29 Unspecified psychosis not due to a substance or known physiological condition; I10 Essential (primary) hypertension; I25.10 Atherosclerotic heart disease of native coronary artery without angina pectoris; E78.5 Hyperlipidemia, unspecified; F32.9 Major depressive disorder, single episode, unspecified; F41.9 Anxiety disorder, unspecified; Z95.1 Presence of aortocoronary bypass graft
CPT/HCPCS: 36415-UA; 80053-TC; 80061-TC; 81001-TC; 83036-90; 84443-TC; 85025-TC; 86592-TC; 93005; Z7610

== ENCOUNTER 2018-09-24 14:05 | Inpatient (IN) | payer MEDICARE, MEDICAID ==
--- NOTE | 2018-09-24 15:03 | ED Physician Chart ---
ED Chief Complaint/HPI - Patient Information Date Seen:: 09/24/18 Time Seen:: 14:30 Chief Complaint:: Increased agitation History of Present Illness:: Brought in by ambulance from nursing facility for medical clearance for Geropsych admission. Pt has been noticed to have left hand swelling. Pt has h/o dementia and psychosis. Pt is uncooperative, and thus H & P are limited. Info is primarily from review of limited transfer documents. Allergies:: Allergies Allergy/AdvReac Type Severity Reaction Status Date / Time No Known Allergies Allergy Verified 07/20/17 13:19 Vitals:: Vital Signs - 8 hr 09/24/18 14:18 Temp 97.7 F HR 60 RR 16 BP 96/38 Historian:: Medical Records (from transferring facility.) Family MD/PCP:: Dr. Rincon/Dr. Walker LMP:: N/A Review:: Nurse's Note Reviewed, Transfer documents Reviewed ED Review of Systems - Review of Systems General/Constitutional: Other (Pt does not cooperate for ROS.) ED Past Medical History - Past Medical History Past Medical History: HTN, PUD/GERD, Dementia, Other (chronic renal insufficiency.) Family History: Other (Pt does not cooperate to provide info on FHx.) Social History: Care Facility, Other (Pt does not cooperate to provide info on SHx.) Surgical History: other (Pt does not cooperate to provide info on Surgical Hx.) Psychiatricy History: Dementia Medication: Reviewed Family Medical History - Family Member Mother History Unknown: Yes ED Physical Exam - Physical Examination General/Constitutional: Awake, Well-developed, well-nourished (male), Alert, No distress, Non-toxic appearing Other Gen/Cons comments:: Breathes comfortably. Pt is essentially nonverbal and is not cooperative. Head: Atraumatic Eyes: Lids, conjuctiva normal, PERRL, EOMI Skin: Nl inspection, Well hydrated, No lymphadenopathy ENMT: External ears, nose nl, Nasal exam nl, Oropharynx nl Neck: Nontender, Full ROM w/o pain, No JVD, No nuchal rigidity, No mass Respiratory: Nl effort/Exclusion, Clear to Auscultation, No Wheeze/Rhonchi/Rales Cardio Vascular: RRR, No murmur, gallop, rubs GI: No tenderness/rebounding/guarding, No organomegaly, Normal BS's, Nondistended, No mass/bruits Other GI comments:: Abdomen is soft. Other Extremities comments:: Unremarkable except L hand shows minimal swelling at lateral dorsum. No open wound, erythema, ecchymosis, or gross deformity. ROM is not well assessed due to lack of pt's cooperation. No detectable motor/sensory/vascular deficit. Good distal capillary refill. Other Neuro/Psych comments:: Alert and responsive to voice and tactile stimuli. Spontaneous movements noticed in all 4 extremities. Pt does not cooperate for full neurological exam. ED Labs/Radiology/EKG Results - Lab Results Results: Laboratory Results - last 24 hr 09/24/18 09/24/18 09/24/18 15:15 15:15 15:15 WBC 6.0 RBC 3.90 Hgb 12.7 Hct 37.2 L MCV 95.4 MCH 32.5 H MCHC Differential 34.1 RDW 13.2 Plt Count 240 MPV 6.7 Neutrophils % 52.9 Lymphocytes % 30.8 Monocytes % 10.7 H Eosinophils % 5.2 H Basophils % 0.4 PT 11.0 INR 1.06 PTT (Actin FS) 35.5 Sodium 139 Potassium 4.2 Chloride 105 Carbon Dioxide 27.5 Anion Gap 10.7 BUN 38 H Creatinine 1.9 H Est GFR ( Amer) TNP Est GFR (Non-Af Amer) TNP BUN/Creatinine Ratio 20.0 Glucose 74 Calcium 9.4 Total Bilirubin 0.4 AST 24 ALT 14 Alkaline Phosphatase 22 L Total Protein 6.9 Albumin 4.0 L Globulin 2.9 Albumin/Globulin Ratio 1.4 Pending lab: urinalysis. - Radiology Results Results: Left hand X-ray: Based on my interpretation, mild soft tissue swelling. No acute fx or subluxation. Official report is pending. ED Septic Shock - . Is Septic Shock (SBP<90, OR Lactate>4 mmol\L) present?: No - <6hrs of presentation: Vital Signs: Vital Signs - 8 hr 09/24/18 14:18 Temp 97.7 F HR 60 RR 16 BP 96/38 ED Reassessment (Disposition) - Reassessment Reassessment:: 1620 Pt remains stable. No new findings. Available lab and radiological findings have been reviewed. Pt is medically cleared for Geropsych admission. Pt 's attending physician Dr. Rincon is to follow on pending lab results. - Diagnosis Diagnosis:: Dementia with increased agitation. Chronic renal insufficiency. L hand contusion. Stable and improved. - Patient Disposition Admitted to:: [facility] Admitting Medical Physician:: Quique Rincon Admitting Psych Physician:: Gabriela Walker Time:: 16:25 Condition at Disposition:: Stable
[2018-09-24 15:38] LABS: INR 1.06 (0.5-1.4)
[2018-09-24 15:41] LABS: ALB/GLOB RATIO 1.4 (1.0-1.8); ALKALINE PHOSPHATASE 22 U/L (34-104); ANION GAP 10.7 (7.0-16.0); BILIRUBIN,TOTAL 0.4 mg/dL (0.3-1.0); BUN - UREA NITROGEN 38 mg/dL (7-25); CALCIUM SERUM 9.4 mg/dL (8.6-10.3); CARBON DIOXIDE 27.5 mEq/L (21.0-31.0); CHLORIDE 105 mEq/L (98-107); CREATININE - SERUM 1.9 mg/dL (0.7-1.3); GLUCOSE 74 mg/dL (70-105); POTASSIUM SERUM 4.2 mEq/L (3.5-5.1); SGOT 24 U/L (13-39); SGPT/ALT 14 U/L (7-52); SODIUM SERUM 139 mEq/L (136-145); TOTAL PROTEIN,SERUM 6.9 gm/dL (6.0-8.3)
[2018-09-24 16:06] LABS: % EOSINOPHILS 5.2 % (0.0-5.0); % LYMPHOCYTES 30.8 % (20.0-50.0); % MONOCYTES 10.7 % (2.0-10.0); % NEUTROPHILS 52.9 % (40.0-80.0); HEMATOCRIT 37.2 % (41.0-60); HEMOGLOBIN 12.7 gm/dL (12-16); MEAN CELL VOLUME 95.4 fl (80-99); MEAN CORPUSCULAR HEMOGLOBIN 32.5 pg (27.0-31.0); MEAN CORPUSCULAR HGB CONC 34.1 pg (28.0-36.0); PLATELET COUNT 240 Th/cmm (150-400); RED CELL DISTRIBUTION WIDTH 13.2 % (11.5-20.0)
[2018-09-24 16:07] LABS: % BASOPHILS 0.4 % (0.0-2.0)
[2018-09-24 16:59] VITALS: BP 106/60
[2018-09-24] MEDS ORDERED: Magnesium Hydroxide (MOM) 30 mL UDC PO PRN (17:16)
[2018-09-24 19:27] LABS: CHOLESTEROL 112 mg/dL (<200); HDL -HIGH DENSITY LIPOPROTEIN 39 mg/dL (23-92); TRIGLYCERIDES 103 mg/dL (<150)
[2018-09-24] MEDS: Fenofibrate, Micronized 134 mg Cap PO SCH (20:49)
[2018-09-25 08:05] LABS: A1C 5.4 % (4.8-5.6)
[2018-09-25] MEDS: Multivitamin Tab PO SCH (09:28)
--- NOTE | 2018-09-25 10:08 | Diagnostic Imaging Report ---
Left hand (4 views) HISTORY: Pain, swelling No acute abnormalities. No fractures. Calcific densities noted adjacent to the first interphalangeal joint which appear chronic. Findings may be associated with old trauma. No other acute abnormalities. No acute fractures. Mild degenerative changes noted about the radial carpal joint space. Mild degenerative changes noted about the first carpal metacarpal joint region. IMPRESSION: 1. No acute bony abnormalities 2. Degenerative and chronic changes
--- NOTE | 2018-09-25 15:48 | Psychiatric Evaluation ---
DATE OF SERVICE: 09/24/2018 IDENTIFYING INFORMATION: The patient is a 73-year-old male. CHIEF COMPLAINT: No answer. HISTORY OF PRESENT ILLNESS: The patient came to nursing facility because of dementia and psychosis. He was uncooperative, unable to make safe plan for self-care. The patient was a poor historian. He was feeding himself, but he would not answer any of my questions. He would not even acknowledge my presence. The patient apparently with a history of dementia. PAST PSYCHIATRIC HISTORY: Dementia. PAST MEDICAL HISTORY: The patient has ____, which is stable and improved. ALLERGIES: The patient has no known drug allergy. FAMILY AND SOCIAL HISTORY: Unobtainable. MENTAL STATUS EXAMINATION: The patient is appropriately dressed and not well groomed. He was in hospital gown. He is alert. He would not tell me his age, where he is, why he is here or participate in any meaningful conversation. Flat affect. He has been agitated in the nursing facility. He is unable to tell me if he wants to harm himself or anyone. He would not tell me if he is responding to internal stimuli. His long and short term memory is poor; unable to tell me his age, where he is, why he is here, how long he has been or date of . His insight about his illness is poor, does not realize ____. Judgment is poor with his agitation, dementia. IMPRESSION: Psychosis, not otherwise specified, dementia. MEDICAL DIAGNOSIS: Hypertension. PLAN: The patient will be continued with his medication, which is Aricept, Namenda. He will continue with the rest of his medication ____, Bisacodyl, fenofibrate, lisinopril. We will adjust medication as needed. ESTIMATED LENGTH OF STAY: 3-7 days. DISCHARGE CRITERIA: Decreasing agitation, psychosis, after discharge, outpatient treatment. [facility]# [id number]
[2018-09-25] MEDS: Fenofibrate, Micronized 134 mg Cap PO SCH (21:38)
[2018-09-26] MEDS: Multivitamin Tab PO SCH (09:40)
[2018-09-26] MEDS: Fenofibrate, Micronized 134 mg Cap PO SCH (21:16)
--- NOTE | 2018-09-27 07:07 | Progress Notes ---
DATE: 09/27/2018 SUBJECTIVE: Chart was reviewed and the patient interviewed. Also discussed the patient's condition with the staff and reviewed records and labs. The patient is still confused and is still actively hallucinating. The patient is talking to himself and rambling with incoherent thought processes and unable to carry on any coherent conversation. The patient also is still wandering around and restless. Also did not sleep most of last night. Also, during interview, the patient is unable to answer any of my questions currently and he is preoccupied and actively responding. ASSESSMENT: The patient is still psychotic and is still agitated. TREATMENT PLAN: We will continue to monitor his behavior closely. Also, increase Risperdal to 0.5 mg at bedtime and we will add trazodone 25 mg at bedtime and will continue to follow up closely. JOB# [id number]
[2018-09-27] MEDS: Multivitamin Tab PO SCH (08:19)
[2018-09-27] MEDS: Fenofibrate, Micronized 134 mg Cap PO SCH (20:47)
--- NOTE | 2018-09-28 00:31 | Progress Notes ---
DATE: 09/27/2018 SUBJECTIVE: Chart was reviewed and the patient interviewed. Also discussed the patient's condition with the staff and reviewed records and labs. The patient remains in a depressed mood and guarded. The patient also is still confused and is still wandering around in a confused state. The patient also still has difficulty sleeping at night and only slept 5 hours last night. The patient also is still easily agitated and easily angry and irritable. Otherwise, the patient is compliant with taking his medications, with no side effects of medications. ASSESSMENT: The patient is still agitated and psychotic. TREATMENT PLAN: We will start the patient on Risperdal 0.25 mg at bedtime and will adjust the dose. Also, we will work on behavior modification and on his anger and irritability and we will continue to follow up closely. [facility]# [id number]
[2018-09-28] MEDS: Multivitamin Tab PO SCH (08:14)
--- NOTE | 2018-09-28 18:23 | Progress Notes ---
DATE: 09/28/2018 SUBJECTIVE: Chart was reviewed and the patient interviewed. Also discussed the patient's condition with the staff and reviewed medical records and labs. The patient is still confused and restless, but he seems to be slightly less agitated and less irritable. The patient also is slightly easier to redirect him. The patient also has been compliant with taking his medications. He is still disheveled and needs lots of redirections and he is still restless. No side effects of medications. Vital signs are stable and steady gait. ASSESSMENT: The patient is still confused and considered to be gravely disabled. TREATMENT PLAN: Continue Namenda, Aricept, Risperdal and trazodone. I increased Risperdal last night and also added trazodone last night, which helped the patient sleep better and will continue same dose. JOB# [id number]
--- NOTE | 2018-09-28 19:20 | Consultation ---
DATE OF CONSULTATION: INTERNAL MEDICINE CONSULTATION For coverage of Dr. Rincon. REQUESTING PHYSICIAN: Dr. Walker. REASON FOR ADMISSION: Psychosis, dementia, hypertension, hyperlipidemia, chronic constipation, and MRSA in nares. HISTORY OF PRESENT ILLNESS: A 73-year-old gentleman, quite confused now sitting in a Milly chair. Denies any headache or chest pain. Denies any abdominal pain. No leg swelling noted. No fever noted. Vital signs otherwise normal. Case discussed with the patient and RN at bedside. Unable to obtain any other history from the patient. ALLERGIES: None. MEDICATIONS: Include Aricept 10 mg once a day, Namenda 10 mg twice a day, lisinopril 20 mg once a day, fenofibrate 134 mg at bedtime, Zocor 40 mg at bedtime, trazodone 25 mg at bedtime, Ambien 5 mg at bedtime, Risperdal 0.5 mg at bedtime, Bactroban ointment twice a day, multivitamin 1 tablet once a day, milk of magnesia 30 mL at bedtime p.r.n., Ativan 0.5 q. 4 p.r.n. agitation and Dulcolax 10 mg suppository q.h.s. p.r.n. for constipation, Tylenol 650 q.4 hours p.r.n. pain. SOCIAL HISTORY: No smoking, alcohol, or substance abuse. FAMILY HISTORY: Noncontributory. REVIEW OF SYSTEMS: See the history of presenting illness. PHYSICAL EXAMINATION: VITAL SIGNS: Height 1.7 meter, weight 68 kg, BMI 23.5. Temperature 97.6, pulse 76, blood pressure 112/77, respiratory rate 19, oxygen saturation on room air 98%. HEENT: Unremarkable. NECK: Supple. No JVD, bruit, or lymphadenopathy. LUNGS: Decreased air entry, but no rales, rhonchi. CARDIOVASCULAR: S1, S2 normal limits. No murmur, gallop or bruit. ABDOMEN: Soft, no hepatosplenomegaly, no masses. Bowel sound is active. BACK: No CVA tenderness. EXTREMITIES: No leg edema noted. No onychomycosis noted. SKIN: Dry with senile purpura. MUSCULOSKELETAL: DJD changes in the major joints, but no clubbing, cyanosis, or synovitis. CENTRAL NERVOUS SYSTEM: Cranial nerve intact. Nonfocal. LABORATORY TESTS: WBC 6000, hemoglobin 12.7, MCV 95, and a platelet count of 240,000, neutrophil 52%. Protime 11, PTT 35. Sodium 139, potassium 4.2, chloride 105, bicarbonate 27, BUN 38, creatinine 1.9, glucose of 74, calcium 9.4. Liver panel unremarkable. Cholesterol 112 and triglyceride 103, LDL 61, HDL 39. Albumin 4.0. On 09/24/2018, x-ray of the hand revealed degenerative changes, but no fracture. ASSESSMENT AND PLAN: 1. Psychosis with Alzheimer dementia, continue Aricept and Namenda with Risperdal 0.5 mg at bedtime and trazodone 25 at bedtime. 2. Degenerative joint disease. Continue atenolol. 3. Hypertension with chronic kidney disease, stage 3, currently on lisinopril 20 and stable. 4. Hyperlipidemia, currently stable on Zocor 40 at bedtime and fenofibrate 134 mg once a day. 5. Chronic constipation. Continue Dulcolax suppository and milk of magnesia as needed. 6. Chronic insomnia. Continue Ambien 5 mg at bedtime p.r.n. 7. Agitation. Continue lorazepam 0.5 q.[address] hours p[address]n. for agitation. Dr. Rincon will follow the patient from 10/01/2018. JOB# [id number]
[2018-09-28] MEDS: Fenofibrate, Micronized 134 mg Cap PO SCH (21:29)
[2018-09-29] MEDS: Multivitamin Tab PO SCH (08:32)
[2018-09-29] MEDS: Fenofibrate, Micronized 134 mg Cap PO SCH (20:53)
[2018-09-30] MEDS: Multivitamin Tab PO SCH (08:13)
--- NOTE | 2018-09-30 10:11 | Progress Notes ---
DATE: 09/29/2018 SUBJECTIVE: Chart was reviewed and the patient interviewed. Also discussed the patient's condition with the staff and reviewed records and labs. The patient is still guarded and confused and easily agitated, but generally calm. The patient also still needs lots of redirections. Also, is still suspicious and paranoid. Otherwise, the patient denies any suicidal or homicidal and he still needs redirections and easy to redirect him. ASSESSMENT: The patient is still agitated and psychotic. TREATMENT PLAN: Continue to monitor behavior and condition closely and continue to follow up. JOB# [id number]
[2018-09-30] MEDS: Fenofibrate, Micronized 134 mg Cap PO SCH (20:29)
--- NOTE | 2018-10-01 01:16 | Progress Notes ---
DATE: SUBJECTIVE: Chart was reviewed and the patient interviewed. Also discussed the patient's condition with the staff and reviewed records and labs. The patient seems to be calmer and less agitated, but he is still confused and restless. The patient also still needs lots of redirection. He also still have episodes of agitation, but less than before. Otherwise, the patient is compliant with taking medications with no side effects. ASSESSMENT: The patient is still confused and slightly agitated. TREATMENT PLAN: Continue to monitor behavior and condition closely and continue adjusting psychotropic medications and followup. JOB# [id number]
[2018-10-01] MEDS: Multivitamin Tab PO SCH (08:29)
[2018-10-01] MEDS: Fenofibrate, Micronized 134 mg Cap PO SCH (20:51)
[2018-10-02] MEDS: Multivitamin Tab PO SCH (08:50)
--- NOTE | 2018-10-02 17:33 | Progress Notes ---
DATE: 10/02/2018 SUBJECTIVE: Chart was reviewed and the patient interviewed. Also discussed the patient's condition with the staff and reviewed records and labs. The patient remains anxious and he is still confused and easily agitated. The patient also still needs lots of redirections. The patient also still has difficulty following staff directions. Otherwise, the patient is compliant with taking his medications and no side effects of medications. ASSESSMENT: The patient is still confused and agitated and needs lots of redirections. TREATMENT PLAN: Continue to monitor behavior and condition closely and continue adjusting psychotropic medications and followup. Also, working on discharge plans and placement issue. JOB# [id number]
[2018-10-02] MEDS: Fenofibrate, Micronized 134 mg Cap PO SCH (20:50)
[2018-10-03] MEDS: Multivitamin Tab PO SCH (09:27)
[2018-10-03] MEDS: Fenofibrate, Micronized 134 mg Cap PO SCH (21:05)
[2018-10-04] MEDS: Multivitamin Tab PO SCH (08:20)
--- NOTE | 2018-10-04 15:34 | Progress Notes ---
DATE: SUBJECTIVE: Chart was reviewed and the patient interviewed. Also discussed the patient's condition with the staff and reviewed records and labs. The patient is anxious, and less irritable and less agitated. The patient also is interacting slightly more, but still in a confused state. Still needs lots of redirections. The patient also is still forgetful and needs close observation. ASSESSMENT: The patient ____ TREATMENT PLAN: Continue to monitor his behavior and his condition closely. Also, continue adjusting psychotropic medications and work on behavioral modification. [facility]# [id number]
--- NOTE | 2018-10-04 17:43 | Progress Notes ---
DATE: 10/04/[address] Walker. SUBJECTIVE: Case was discussed with staff of the patient, reviewed records. The patient is a well-known case to me as I have seen him before covering for Dr. Walker. The patient is easily agitated, confused, anxious, stay to himself, needing a lot of redirection, unable to follow staff direction. He has been compliant with the medication with no side effects, no sedation, no nausea, no extrapyramidal symptoms. on Risperdal 0.5 mg at bedtime, Namenda 10 mg twice a day, Aricept 10 mg at bedtime. We will continue the patient in group therapy, milieu therapy, and adjust medications as needed. JOB# [id number] MTDD
--- NOTE | 2018-10-04 20:34 | Progress Notes ---
DATE: 10/01/2018 SUBJECTIVE: Chart was reviewed and the patient interviewed. Also discussed the patient's condition with the staff and reviewed records and labs. The patient continued to be confused and continued to be anxious and restless. The patient also is still suspicious and is still paranoid. On the other hand, the patient seems to be calmer and slightly less irritable and less agitated. The patient also is easier to redirect him. ASSESSMENT: The patient is still confused and considered to be gravely disabled. TREATMENT PLAN: Continue to monitor his behavior and his condition closely. Also, continue to work on his irritability and also on discharge plans and continue adjusting psychotropic medications. JOB# [id number]
[2018-10-04] MEDS: Fenofibrate, Micronized 134 mg Cap PO SCH (21:25)
[2018-10-05] MEDS: Multivitamin Tab PO SCH (08:29)
--- NOTE | 2018-10-07 16:52 | Discharge Summary ---
DATE OF DISCHARGE: 10/05/2018 AGE: 73. SEX: Male. PHYSICIAN: Dr. Walker. FINAL DIAGNOSES: PRIMARY DIAGNOSIS: Unspecified psychosis. MEDICAL DIAGNOSIS: Hypertension. REASON FOR HOSPITALIZATION: The patient was admitted to the hospital from [facility] because the patient was uncooperative and he was forgetful and easily agitated and was not able to follow directions from staff. HOSPITAL COURSE: The patient continued to be agitated and restless. The patient also was forgetful. The patient was started on Aricept 10 mg at bedtime and the Namenda 10 mg twice a day. Also, because of his agitation and irritability, the patient was given Risperdal and dose adjusted to 0.5 mg at bedtime. Gradually, the patient's affect was brighter. The patient was less irritable and less agitated. It also was easier to redirect him. The patient was discharged back to [facility]. PHYSICAL EXAMINATION: Showed no major medical problems, but the patient has hypertension. AFTER-DISCHARGE PLANS: The patient discharged from the hospital and went back to [facility] with plan to follow him there. EXPECTED OUTCOME AFTER DISCHARGE: Fair if the patient continues to take his psychotropic medications and follow up with discharge plans. JOB# [id number]
== END 2018-10-05 14:30 | DRG 885 ==
LOC: ER 14:05 → GERO2 16:27 → GERO 10-02 17:31
PROVIDERS: ADMIT Psychiatry & Neurology Psychiatry; ATTEND Psychiatry & Neurology Psychiatry
DX: F29 Unspecified psychosis not due to a substance or known physiological condition (principal); N18.9 Chronic kidney disease, unspecified; K21.9 Gastro-esophageal reflux disease without esophagitis; S60.222A Contusion of left hand, initial encounter; F03.90 Unspecified dementia, unspecified severity, without behavioral disturbance, psychotic disturbance, mood disturbance, and anxiety; I12.9 Hypertensive chronic kidney disease with stage 1 through stage 4 chronic kidney disease, or unspecified chronic kidney disease; K59.09 Other constipation; Z87.11 Personal history of peptic ulcer disease; Z79.899 Other long term (current) drug therapy; X58.XXXA Exposure to other specified factors, initial encounter; Y93.89 Activity, other specified; Y92.89 Other specified places as the place of occurrence of the external cause; Y99.8 Other external cause status
CPT/HCPCS: 36415-UA; 73130-TC-LT; 80053-TC; 80061-TC; 83036-90; 85025-TC; 85610-TC; Z7610